=== PATIENT | male | born 1940 | race Hispanic/Latino ===

== ENCOUNTER 2016-07-15 09:09 | Inpatient (IN) | payer MEDICARE ==
--- NOTE | 2016-07-15 11:37 | XRay Report ---
LEFT HIP, 2 VIEWS History: Left hip pain after fall. Findings: There is borderline bone mineralization. Mild osteoarthritic changes are noted at the left hip. No fracture or malalignment is detected. Chronic surgical changes in the proximal right femur, correlate with history. Impression: No acute injury is identified. Mild degenerative changes.
--- NOTE | 2016-07-15 13:38 | Emergency Department Report ---
Chief Complaint: Fall Stated Complaint: FELL / LEG PAIN Time Seen by Provider: 07/15/16 13:31 - HPI History of Present Illness: 76-year-old male comes in with his for recent falls and complaining of hip pain. Patient is not able to answer questions is Dorena on his behalf. She reports that he has not been eaten for several days he's been having increased falls he's not been able to be aware of his surroundings. - Exam Vital Signs: Vital Signs 07/15/16 09:24 Temperature 98.1 F Pulse Rate 69 Respiratory 18 Rate Blood Pressure 149/108 O2 Sat by Pulse 97 Oximetry Physical Exam: GENERAL: Alert and oriented x3, no apparent distress, Normal Gait, atraumatic. HEAD: Head is normocephalic and a-traumatic. Eye: PEERA, EOMI MOUTH:Mouth is well hydrated and without lesions. Tonsils nonerythematous or swollen, Uvula midline, Tongue not elevated. Mucous membranes are moist. Posterior pharynx clear, no exudate or lesions. Patent airways. LUNGS: Symetrical with respiration, No wheezing, no rales or crackles, CTAB. HEART: S1, S2 present, regular rate and rhythm without murmur, no rubs, no gallops. EXTREMITIES/MUSCULOSKELETAL: No cyanosis, clubbing, rash, lesions or edema. Full ROM bilaterally. UE/LE Pulses 2+ bilaterally. LE and UE 5+ strength bilaterally NEUROLOGIC: No focal Deficit, Cranial nerves II through XII are grossly intact. No loss of sensation, No facial droop, Negative rhomberg. PSYCHIATRIC: Mood is congruent with affect, denies suicidal or homicidal ideations. SKIN: Warm and dry, No lesions, No ulceration or induration present MSE screening note: Focused history and physical exam performed. Due to findings the following was ordered: UA and hip x-ray ordered ED Disposition for MSE Condition: Stable Referrals: IAN PAZ MD, PHD [Primary Care Provider] - 3-5 Days
--- NOTE | 2016-07-15 14:48 | Cat Scan Report ---
CT HEAD WITHOUT CONTRAST: HISTORY: Head injury. TECHNIQUE: Sequential CT images without contrast. FINDINGS: Images obtained show bilateral prominence of the sulci and ventricles. There are no abnormal intra- or extra-axial blood or fluid collections. There are no focal masses or evidence of mass effect. The [place] white matter differentiation appears within normal limits. Regions of periventricular decreased attenuation are consistent with microangiopathic ischemic disease. Chronic-appearing focal infarcts in the left basal ganglia and inferior left cerebellar hemisphere are noted. The posterior fossa structures including the fourth ventricle, cerebellum, and brainstem appear normal. IMPRESSION: Evidence of atrophy and microangiopathic ischemic disease. 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 No acute intracranial process noted.
[2016-07-15] MEDS ORDERED: TYLENOL PO ONE (17:33)
[2016-07-15] MEDS ORDERED: NACL 0.9% 1000 ML 2,000 ML IV ONE (17:59)
[2016-07-15] MEDS ORDERED: VALIUM IV ONE (18:01)
--- NOTE | 2016-07-15 18:01 | Emergency Department Report ---
HPI - General Chief Complaint: Fall Time Seen by Provider: 07/15/16 13:31 - HPI HPI: The patient is a 76-year-old male presents for evaluation of altered mental status. The patient, by his . She states that the patient has exhibited worsening of mental status from baseline since last night, nearly 24 hours prior to my evaluation. She states that his worsening mental status has been constant since onset and severe. She also states that he has exhibited gait instability and falling more than 5 times last night which is very atypical for him. He is also complaining of left hip pain. ED Past Medical Hx - Past Medical History Hx Hypertension: Yes Hx Heart Attack/AMI: Yes Hx Dementia: Yes - Surgical History Hx Coronary Stent: Yes Hx Open Heart Surgery: Yes Additional Surgical History: multiple ortho. 7 back surgeries. hernia repair - Social History Smoking Status: Never Smoker Substance Use Type: None - Medications Home Medications: Home Medications Medication Instructions Recorded Confirmed Last Taken Type Bisoprolol/Hctz [Ziac 2.5-6.25] 1 tab PO QDAY 07/15/16 07/15/16 Unknown History Terazosin(Nf) [Hytrin (Nf)] 1 mg PO QHS 07/15/16 07/15/16 Unknown History Venlafaxine Xr [Effexor XR] 2 cap PO QDAY 07/15/16 07/15/16 Unknown History ED Review of Systems ROS: Stated complaint: FELL / LEG PAIN Other details as noted in HPI Comment: Unobtainable due to pts medical conditions (altered mental status) Physical Exam - Physical Exam Vital Signs: Vital Signs 07/15/16 09:24 Temperature 98.1 F Pulse Rate 69 Respiratory 18 Rate Blood Pressure 149/108 O2 Sat by Pulse 97 Oximetry Physical Exam: General: well-nourished, well-developed, no acute distress Head: Normocephalic, atraumatic Eyes: normal sclera, PERRL ENT: Mucous membranes are pale and dry Neck: No neck stiffness, no cervical adenopathy Respiratory: Diminished breath sounds and crackles present to bibasally lung chowdhury bilaterally Cardio: S1 and S2 present, no murmurs, rubs, gallops, capillary refill is delayed Abdomen: Normoactive bowel sounds, soft abdomen, diffuse generalized tenderness to palpation present, no rigidity, no guarding or rebound tenderness Musc: Left hip tenderness to palpation present, No pitting edema Skin: No rash Neuro: Patient unable to follow commands, gag reflex intact, protecting airway, no facial drooping, slurred speech present, spontaneously moves all extremities , reflexes 2+ symmetric on DTR testing, no lateralizing weakness Psych: Normal affect ED Course Vital Signs 07/15/16 09:24 Temperature 98.1 F Pulse Rate 69 Respiratory 18 Rate Blood Pressure 149/108 O2 Sat by Pulse 97 Oximetry ED Medical Decision Making - Lab Data Result diagrams: 07/15/16 17:56 07/15/16 17:56 - Medical Decision Making The patient was seen and examined by myself. The patient is placed on a lunchroom monitor and continuous pulse ox. On initial evaluation, the patient was found to be in no distress. Evaluation orders were placed. The patient is given normal saline fluid bolus for treatment of dehydration. X-ray of the chest reveals cardiomegaly and pulmonary vascular congestion. Lab results reveal leukocytosis, WBC of 14, and significantly elevated BNP of 35,000. CT scan the head is negative for acute intracranial disease process but does exhibit likely chronic microvascular ischemic change. X-ray of the hip is negative for acute fracture. The on-call hospitalist service was contacted. They agreed to admit the patient for further treatment and close monitoring. The ED admit order was placed. The patient was admitted in guarded condition. Critical care attestation.: If time is entered above; I have spent that time in minutes in the direct care of this critically ill patient, excluding procedure time. ED Disposition Clinical Impression: Abdominal pain, acute, generalized, Acute pain of left hip, Acute systolic CHF (congestive heart failure) Altered mental status Qualifiers: Altered mental status type: delirium Qualified Code(s): R41.0 - Disorientation , unspecified Disposition: OP ADMITTED IP TO THIS HOSP Is pt being admited?: Yes Does the pt Need Aspirin: Yes Condition: Fair Time of Disposition: 18:00
--- NOTE | 2016-07-15 18:06 | Admit Criteria Form ---
Admission Criteria Documentation: MENTAL STATUS CHANGE Clinical Indications for Inpatient Care (Place 'X' for any and all applicable criteria): Ongoing inpatient care may be needed for 1 or more of the following(1)(2)(3)(5)( 6): [X ]I. Suspected serious etiology (eg, medical disorder, [employer] event) of altered mental status [ ]II. Danger to self or others not manageable at lower level of care [ ]III. Grave disability (eg, inability to perform self care necessary at lower level of care) [ ]IV. Agitation or inappropriate behavior interfering with care for primary condition (eg, attempting to discontinue lines or drains prematurely, unable to cooperate with respiratory care) [ ]V. Delirium [A] [D][E] as described by 1 or more of the following(26): [ ]a) Delirium due to alcohol or sedative [F] withdrawal [ ]b) Delirium of uncertain etiology that has not responded to appropriate empiric treatment [ ]c) Delirium that prevents performance of a life-sustaining function (eg, feeding or hydrating oneself) [X ]. General contraindications and/or Inappropriate clinical situations for Observational Care in patients with Mental Status Change, when ANY ONE of the following is required: [X ]a) Prediction of prolongation of LOS based on ANY ONE of the following may be considered as a contraindication for observational care 2, 3, 4, 5, 6, 7, 8, 9, 10, 11 [X ]i) Age > 65 yrs. [ ]ii) Patient arriving by ambulance [ ]iii) Patient with high acuity [ ]iv) Patient requiring vital sign monitoring [ ]v) Patient on IV medication [ ]b) Systolic blood pressures greater than or equal to 180mmHg 3, 12 [ ]c) Patient with altered mental status including delirium and other alteration of consciousness, (3) [ ]d) Patient whose discharge disposition will be to a long-term home or rehabilitation home should not be managed in Emergency Department Observation Unit. CMS rule requires 3 days hospital stay before such placement.3,13 [ ]e) Patient with failure to thrive due to broad array of etiologies 3,16,17 [ ]f) Inability to ambulate 3,14 Extended stay beyond goal length of stay for the primary condition may be needed until ALL of the following are present(3)(5): [ ]a) Underlying medical etiology of mental status change is absent, or has been established and adequately treated [ ]b) Danger to self or others is absent or manageable at lower level of care. [ ]c) Behavior crisis management, including physical or chemical restraints, is not required or available at lower level of car [ ]d) Substance or alcohol withdrawal is absent or manageable at lower level of care. [ ]e) Behavioral symptoms (eg, agitation, somnolence, inappropriate behavior) are absent, or are manageable at lower level of care. The original [facility] [employer] content created by [facility] has been revised. The portions of the content which have been revised are identified through the use of italic text or in bold, and [facility] has neither reviewed nor approved the modified material. All other unmodified content is copyright [facility]. Please see references footnoted in the original [facility] edition 2016 Admission Criteria Met: Yes
[2016-07-15 18:15] LABS: Basophils % (Auto) 0.2 % (0.0-1.8); Hematocrit 40.4 % (35.5-45.6); Hemoglobin 13.4 gm/dl (11.8-15.2); Mean Corpuscular HGB Conc 33 % (32-34); Mean Corpuscular Hemoglobin 30 pg (28-32); Mean Corpuscular Volume 91 fl (84-94); Platelet Count 206 K/mm3 (140-440); Red Blood Count 4.43 M/mm3 (3.65-5.03); Red Cell Distribution Width 14.6 % (13.2-15.2); White Blood Count 14.4 K/mm3 (4.5-11.0)
[2016-07-15 18:31] LABS: Alanine Aminotransferase 16 units/L (7-56); Albumin 4.4 g/dL (3.9-5); Albumin/Globulin Ratio 1.5 %; Alkaline Phosphatase 83 units/L (35-129); Anion Gap 22 mmol/L; BUN/Creatinine Ratio 16.66; Blood Urea Nitrogen 15 mg/dL (9-20); Calcium 10.1 mg/dL (8.4-10.2); Carbon Dioxide 22 mmol/L (22-30); Chloride 97.1 mmol/L (98-107); Creatine Kinase 408 units/L (55-170); Glucose 116 mg/dL (75-100); Potassium 3.4 mmol/L (3.6-5.0); Sodium 138 mmol/L (137-145); Total Protein 7.3 g/dL (6.3-8.2)
[2016-07-15 18:33] LABS: INR 1.3 (0.87-1.13); Partial Thromboplastin Time 29.9 Sec. (24.2-36.6)
[2016-07-15] MEDS ORDERED: APRESOLINE IV ONE (18:57)
--- NOTE | 2016-07-15 19:38 | History and Physical Report ---
History of Present Illness Chief complaint: Falling, History of present illness: 76 YO Male with HTN, [place], Dementia, CAD S/P CABG presents to ED for evaluation. Pt unable to provide history. Pt at bedside and provides history. As per , pt has gotten progressively weaker over the past 4 days, and is currently unable to walk. Pt was ambulating independently 4 days ago, and able to conduct ADL's. Pt denies reports of fever, chills, CP, Palpitation, NVD, syncope, vertigo, headache, or recent ill contacts. Pt see and evaluated in ED, Pt is able to protect his airway but is aspirating. Past History Past Medical History: acute SC, CAD, hypertension Past Surgical History: CABG, hernia repair, Other (back surgery) Social history: , lives with family. denies: smoking, alcohol abuse, prescription drug abuse Family history: hypertension Medications and Allergies Allergies Allergy/AdvReac Type Severity Reaction Status Date / Time No Known Allergies Allergy Verified 07/15/16 09:33 Home Medications Medication Instructions Recorded Confirmed Last Taken Type Bisoprolol/Hctz [Ziac 2.5-6.25] 1 tab PO QDAY 07/15/16 07/15/16 Unknown History Terazosin(Nf) [Hytrin (Nf)] 1 mg PO QHS 07/15/16 07/15/16 Unknown History Venlafaxine Xr [Effexor XR] 2 cap PO QDAY 07/15/16 07/15/16 Unknown History Active Meds: Active Medications Sodium Chloride (Nacl 0.9% 1000 Ml) 2,000 mls @ 999 mls/hr IV BOLUS ONE Stop: 07/15/16 19:59 Review of Systems ROS unobtainable: due to mental status Exam - Constitutional Vitals: Temp Pulse Resp BP Pulse Ox 98.1 F 69 18 149/108 97 07/15/16 09:24 07/15/16 09:24 07/15/16 09:24 07/15/16 09:24 07/15/16 09:24 General appearance: Present: mild distress, cachectic - EENT Eyes: Present: PERRL ENT: hearing intact, clear oral mucosa - Neck Neck: Present: supple, normal ROM - Respiratory Respiratory effort: labored Respiratory: bilateral: diminished - Cardiovascular Rhythm: regular Heart Sounds: Present: S1 & S2 - Extremities Extremities: no ischemia Peripheral Pulses: within normal limits - Abdominal General gastrointestinal: Present: soft, non-tender, non-distended Male genitourinary: Present: normal - Integumentary Integumentary: Present: clear, dry, decreased turgor - Musculoskeletal Musculoskeletal: generalized weakness - Psychiatric Psychiatric: no intact judgment & insight, no memory intact - Neurologic Neurologic: CNII-XII intact, no focal deficits, moves all extremities, no gait normal Results - Labs CBC & Chem 7: 07/15/16 17:56 07/15/16 17:56 Labs: Abnormal lab results 07/15/16 07/15/16 07/15/16 Range/Units 17:56 17:56 17:56 WBC 14.4 H (4.5-11.0) K/mm3 Lymph % (Auto) 4.3 L (13.4-35.0) % [place] % (Auto) 8.8 H (0.0-7.3) % Lymph # 0.6 L (1.2-5.4) K/mm3 [place] # 1.3 H (0.0-0.8) K/mm3 Seg Neutrophils % 86.7 H (40.0-70.0) % Seg Neutrophils # 12.4 H (1.8-7.7) K/mm3 PT 16.1 H (12.2-14.9) Sec. INR 1.30 H (0.87-1.13) Potassium 3.4 L (3.6-5.0) mmol/L Chloride 97.1 L (98-107) mmol/L Glucose 116 H (75-100) mg/dL Total Bilirubin 1.80 H (0.1-1.2) mg/dL Total Creatine Kinase 408 H (55-170) units/L NT-Pro-B Natriuret Pep (0-900) pg/mL 07/15/16 Range/Units 17:56 WBC (4.5-11.0) K/mm3 Lymph % (Auto) (13.4-35.0) % [place] % (Auto) (0.0-7.3) % Lymph # (1.2-5.4) K/mm3 [place] # (0.0-0.8) K/mm3 Seg Neutrophils % (40.0-70.0) % Seg Neutrophils # (1.8-7.7) K/mm3 PT (12.2-14.9) Sec. INR (0.87-1.13) Potassium (3.6-5.0) mmol/L Chloride (98-107) mmol/L Glucose (75-100) mg/dL Total Bilirubin (0.1-1.2) mg/dL Total Creatine Kinase (55-170) units/L NT-Pro-B Natriuret Pep 61336 H (0-900) pg/mL Assessment and Plan - Patient Problems (1) Aspiration pneumonia Current Visit: Yes Status: Acute Qualifiers: Aspiration pneumonia type: A Laterality: L Lung location: L Plan to address problem: Pneumonia Protocol: IV abx, blood cultures, aspiration precautions, supplemental oxygen, nebs, pulmonary toilet, (2) CHF (congestive heart failure) Current Visit: Yes Status: Acute Qualifiers: Congestive heart failure type: C Congestive heart failure chronicity: C Plan to address problem: Echo, diuresis, monitor uop q shift, serial cardiac enzymes, ekg, telemetry, supportive care, afterload reduction as clinically indicated, (3) Accelerated hypertension Current Visit: Yes Status: Acute Plan to address problem: Monitor BP q shift, continue current therapy (4) CAD (coronary artery disease) Current Visit: Yes Status: Acute Qualifiers: Coronary Disease-Associated Artery/Lesion type: C [place] vs. transplanted heart: N Associated angina: without angina Plan to address problem: No angina at this time, supportive care, telemetry (5) DVT prophylaxis Current Visit: Yes Status: Acute
[2016-07-15] MEDS ORDERED: TYLENOL PO PRN (20:11)
[2016-07-15] MEDS ORDERED: ZOFRAN IV PRN (20:11)
[2016-07-15] MEDS ORDERED: DUONEB 0.5 MG-3 MG/3 ML SOLN IH PRN (20:11)
[2016-07-15] MEDS ORDERED: PROVENTIL IH PRN (20:20)
[2016-07-15] MEDS ORDERED: TERAZOSIN 1 MG PO SCH (22:00)
[2016-07-15] MEDS ORDERED: ROCEPHIN/NS 1 GM/50 ML 1 GM/50 ML BAG IV ONE (22:43)
[2016-07-15] MEDS: MINIPRESS PO SCH (22:50)
[2016-07-15] MEDS: ROCEPHIN/NS 1 GM/50 ML 1 GM/50 ML BAG IV SCH (22:51)
[2016-07-16] MEDS: ZITHROMAX 500 MG in NACL 0.9% 250ML 250 ML IV SCH ×2 (03:15→23:02)
[2016-07-16 06:00] LABS: Basophils % (Auto) 0.1 % (0.0-1.8); Hematocrit 36.7 % (35.5-45.6); Hemoglobin 12.3 gm/dl (11.8-15.2); Mean Corpuscular HGB Conc 33 % (32-34); Mean Corpuscular Hemoglobin 30 pg (28-32); Mean Corpuscular Volume 89 fl (84-94); Platelet Count 165 K/mm3 (140-440); Red Blood Count 4.11 M/mm3 (3.65-5.03); Red Cell Distribution Width 14.6 % (13.2-15.2); White Blood Count 11.8 K/mm3 (4.5-11.0)
[2016-07-16 06:14] LABS: Anion Gap 22 mmol/L; BUN/Creatinine Ratio 16.25; Blood Urea Nitrogen 13 mg/dL (9-20); Carbon Dioxide 19 mmol/L (22-30); Chloride 99.7 mmol/L (98-107); Glucose 100 mg/dL (75-100); Sodium 138 mmol/L (137-145)
[2016-07-16 06:19] LABS: Potassium 2.8 mmol/L (3.6-5.0)
[2016-07-16] MEDS: LASIX IV SCH ×2 (06:28→18:20)
--- NOTE | 2016-07-16 07:27 | XRay Report ---
AP CHEST: HISTORY: chest pain No comparison at this facility. Previous cardiac surgery changes are noted. There is mild cardiomegaly and borderline pulmonary venous congestion. The lungs are clear. No evidence for pneumonia, CHF or pneumothorax. Chronic deformity of the right clavicle is suspected. No acute bony abnormality. IMPRESSION: Mild cardiomegaly and borderline pulmonary venous congestion. No CHF.
[2016-07-16] MEDS ORDERED: PROVENTIL IH PRN (10:26)
[2016-07-16] MEDS ORDERED: ZOFRAN IV PRN (10:44)
[2016-07-16] MEDS ORDERED: SODIUM CHLORIDE FLUSH SYRINGE 10 ML IV PRN (10:44)
[2016-07-16] MEDS ORDERED: REGLAN PO PRN (10:44)
[2016-07-16] MEDS ORDERED: DULCOLAX PR PRN (10:44)
[2016-07-16] MEDS ORDERED: PHENERGAN PR PRN (10:44)
[2016-07-16] MEDS ORDERED: TYLENOL PO PRN (10:44)
[2016-07-16] MEDS ORDERED: MILK OF MAGNESIA PO PRN (10:44)
--- NOTE | 2016-07-16 10:52 | Progress Note ---
Assessment and Plan Assessment and plan: Acute CVA. I suspect patient may have acute CVA given the frequent falls/ ataxia and dysarthria reported by the . Patient may also have component of aphasia. CT scan of the head revealed microangiopathic ischemic disease and chronic focal infarcts in the left basal ganglia and left cerebellum. We will check MRI/MRA to rule out new acute infarct. Patient is outside of the TPA window given the onset of symptoms started Thursday. We will also check echocardiogram. Aspiration pneumonia. Continue IV antibiotics, aspiration precautions, supplemental oxygen, nebulizer treatments and pulmonary toileting. Speech therapy evaluation. Keep nothing by mouth for now Accelerated hypertension. Start IV antihypertensive medications given NPO status. Coronary artery disease. Continue telemetry monitoring and supportive care. Hypokalemia. Replete potassium. Check magnesium Encephalopathy. Etiology likely secondary to #1. Other possible etiology may be toxic related to pneumonia. DVT prophylaxis. Start Lovenox daily. History Interval history: 76 YO Male with HTN, [place], Dementia, CAD S/P CABG presents to ED for evaluation. Pt unable to provide history. Pt at bedside and provides history. As per , pt has gotten progressively weaker over the past 4 days, and is currently unable to walk. Pt was ambulating independently 4 days ago, and able to conduct ADL's. Pt denies reports of fever, chills, CP, Palpitation, NVD, syncope, vertigo, headache, or recent ill contacts. Dr. López saw and evaluated in ED. he felt that the patient was able to protect his airway but was aspirating. Therefore, patient was admitted with diagnosis of aspiration pneumonia. I discussed the history with the who reports patient having frequent falls starting on Thursday. Patient reportedly had 4 falls associated with slurred speech. Patient is agitated and confused. is at the bedside. Hospitalist Physical - Constitutional Vitals: Temp Pulse Resp BP Pulse Ox 98.9 F 98 H 19 134/70 96 07/16/16 07:00 07/16/16 07:00 07/16/16 07:00 07/16/16 07:00 07/16/16 07:17 General appearance: Present: no acute distress, cachectic - EENT Eyes: Present: PERRL, EOM intact ENT: hearing intact, clear oral mucosa, dentition normal - Neck Neck: Present: supple, normal ROM - Respiratory Respiratory effort: normal Respiratory: bilateral: rhonchi - Cardiovascular Rhythm: regular Heart Sounds: Present: S1 & S2. Absent: gallop, rub - Extremities Extremities: no ischemia, No edema, Full ROM - Abdominal General gastrointestinal: soft, non-tender, non-distended, normal bowel sounds - Integumentary Integumentary: Present: clear, warm, dry - Neurologic Neurologic: CNII-XII intact, moves all extremities Results - Labs CBC & Chem 7: 07/16/16 05:01 07/16/16 05:01 Labs: Laboratory Last Values WBC 11.8 K/mm3 (4.5-11.0) H 07/16/16 05:01 RBC 4.11 M/mm3 (3.65-5.03) 07/16/16 05:01 Hgb 12.3 gm/dl (11.8-15.2) 07/16/16 05:01 Hct 36.7 % (35.5-45.6) 07/16/16 05:01 MCV 89 fl (84-94) 07/16/16 05:01 MCH 30 pg (28-32) 07/16/16 05:01 MCHC 33 % (32-34) 07/16/16 05:01 RDW 14.6 % (13.2-15.2) 07/16/16 05:01 Plt Count 165 K/mm3 (140-440) 07/16/16 05:01 Lymph % (Auto) 6.9 % (13.4-35.0) L 07/16/16 05:01 [place] % (Auto) 9.8 % (0.0-7.3) H 07/16/16 05:01 Eos % (Auto) 0.0 % (0.0-4.3) 07/16/16 05:01 Baso % (Auto) 0.1 % (0.0-1.8) 07/16/16 05:01 Lymph # 0.8 K/mm3 (1.2-5.4) L 07/16/16 05:01 [place] # 1.2 K/mm3 (0.0-0.8) H 07/16/16 05:01 Eos # 0.0 K/mm3 (0.0-0.4) 07/16/16 05:01 Baso # 0.0 K/mm3 (0.0-0.1) 07/16/16 05:01 Seg Neutrophils % 83.2 % (40.0-70.0) H 07/16/16 05:01 Seg Neutrophils # 9.8 K/mm3 (1.8-7.7) H 07/16/16 05:01 PT 16.1 Sec. (12.2-14.9) H 07/15/16 17:56 INR 1.30 (0.87-1.13) H 07/15/16 17:56 APTT 29.9 Sec. (24.2-36.6) 07/15/16 17:56 D-Dimer 5169.78 ng/mlDDU (0-234) H 07/15/16 17:56 Sodium 138 mmol/L (137-145) 07/16/16 05:01 Potassium 2.8 mmol/L (3.6-5.0) L* 07/16/16 05:01 Chloride 99.7 mmol/L (98-107) 07/16/16 05:01 Carbon Dioxide 19 mmol/L (22-30) L 07/16/16 05:01 Anion Gap 22 mmol/L 07/16/16 05:01 BUN 13 mg/dL (9-20) 07/16/16 05:01 Creatinine 0.8 mg/dL (0.8-1.5) 07/16/16 05:01 Estimated GFR > 60 ml/min 07/16/16 05:01 BUN/Creatinine Ratio 16.25 % 07/16/16 05:01 Glucose 100 mg/dL (75-100) 07/16/16 05:01 Calcium 9.0 mg/dL (8.4-10.2) 07/16/16 05:01 Total Bilirubin 1.80 mg/dL (0.1-1.2) H 07/15/16 17:56 AST 38 units/L (5-40) 07/15/16 17:56 ALT 16 units/L (7-56) 07/15/16 17:56 Alkaline Phosphatase 83 units/L (35-129) 07/15/16 17:56 Total Creatine Kinase 408 units/L (55-170) H 07/15/16 17:56 NT-Pro-B Natriuret Pep 17643 pg/mL (0-900) H 07/15/16 17:56 Total Protein 7.3 g/dL (6.3-8.2) 07/15/16 17:56 Albumin 4.4 g/dL (3.9-5) 07/15/16 17:56 Albumin/Globulin Ratio 1.5 % 07/15/16 17:56
[2016-07-16] MEDS: EFFEXOR XR PO SCH (11:16)
--- NOTE | 2016-07-16 11:56 | Consultation ---
History of Present Illness Consult date: 07/16/16 Requesting physician: LU JONES Reason for Consult: ataxia/dysarthria Chief complaint: AMS limits direct hx History of present illness: 76 YO M Hx HTN, SD, Dementia but communicative and ambulated @ home w/o assistance, CAD S/P CABG presents to ED for evaluation. Pt unable to provide history. Pt at bedside and provides history. As per , pt has gotten progressively weaker over the past 4 days, and is currently unable to walk causing falls. Pt was ambulating independently 4 days ago, and able to conduct ADL's. Sx are constant but waxing and waning. There are no clear aggravating, relieving or temporal factors. Severity is such to limit ADLs. She also noted slurred speech. Past History Past Medical History: acute SD, CAD, hypertension Past Surgical History: CABG, hernia repair, Other (back surgery) Social history: , lives with family. denies: smoking, alcohol abuse, prescription drug abuse Family history: hypertension Medications and Allergies Allergies Allergy/AdvReac Type Severity Reaction Status Date / Time No Known Allergies Allergy Verified 07/15/16 09:33 Home Medications Medication Instructions Recorded Confirmed Last Taken Type Bisoprolol/Hctz [Ziac 2.5-6.25] 1 tab PO QDAY 07/15/16 07/15/16 Unknown History Terazosin(Nf) [Hytrin (Nf)] 1 mg PO QHS 07/15/16 07/15/16 Unknown History Venlafaxine Xr [Effexor XR] 2 cap PO QDAY 07/15/16 07/15/16 Unknown History Active Meds: Active Medications Acetaminophen (Tylenol) 650 mg PO Q4H PRN PRN Reason: Pain MILD(1-3)/Fever >100.5/CABRERA Albuterol (Proventil) 2.5 mg IH Q6HRT PRN PRN Reason: Wheezing Albuterol/Ipratropium (Duoneb 0.5 Mg-3 Mg/3 Ml Soln) 1 ampul IH TIDRT TINO Bisacodyl (Dulcolax) 10 mg OK QDAY PRN PRN Reason: Constipation Enoxaparin Sodium (Lovenox) 40 mg SUB-Q QDAY TINO Furosemide (Lasix) 20 mg IV BID@0600,1800 TINO Last Admin: 07/16/16 06:28 Dose: 20 mg Azithromycin 500 mg/ Sodium (Chloride) 250 mls @ 250 mls/hr IV Q24H TINO PRN Reason: Protocol Last Admin: 07/16/16 03:15 Dose: 250 mls/hr Ceftriaxone Sodium (Rocephin/Ns 1 Gm/50 Ml) 1 gm in 50 mls @ 100 mls/hr IV Q24H TINO PRN Reason: Protocol Last Admin: 07/15/16 22:51 Dose: 100 mls/hr Potassium Chloride (Kcl 10meq/100ml) 10 meq in 100 mls @ 100 mls/hr IV ONCE ONE Stop: 07/16/16 12:59 Potassium Chloride (Kcl 10meq/100ml) 10 meq in 100 mls @ 100 mls/hr IV ONCE ONE Stop: 07/16/16 14:59 Influenza Virus Vaccine Quadrival (Fluarix Quad [id number] [id number])) 60 mcg IM .ONCE ONE Stop: 07/16/16 12:01 Magnesium Hydroxide (Milk Of Magnesia) 30 ml PO Q4H PRN PRN Reason: Constipation Metoclopramide HCl (Reglan) 10 mg PO Q6H PRN PRN Reason: Nausea And Vomiting Ondansetron HCl (Zofran) 4 mg IV Q8H PRN PRN Reason: N/V unrelieved by Reglan Pneumococcal Polyvalent Vaccine (Pneumovax 23) 0.5 ml IM .ONCE ONE Stop: 07/16/16 12:01 Prazosin HCl (Minipress) 1 mg PO QHS [facility]1983 Last Admin: 07/15/16 22:50 Dose: 1 mg Promethazine HCl (Phenergan) 25 mg OK Q6H PRN PRN Reason: Nausea And Vomiting Simvastatin (Zocor) 20 mg PO QHS [facility], [facility]1983 Sodium Chloride (Sodium Chloride Flush Syringe 10 Ml) 10 ml IV PRN PRN PRN Reason: LINE FLUSH Venlafaxine HCl (Effexor Xr) 150 mg PO QDAY [facility]1983 Last Admin: 07/16/16 11:16 Dose: Not Given Review of Systems ROS unobtainable: due to mental status Physical Examination - Vital Signs Vital Signs: Vital Signs Temp Pulse Resp BP Pulse Ox 98.1 F 69 18 149/108 97 07/15/16 09:24 07/15/16 09:24 07/15/16 09:24 07/15/16 09:24 07/15/16 09:24 - Constitutional General appearance: uncomfortable, acutely ill, chronically ill - EENT EENT: Present: ATNC, PERRL, mucous membranes moist, hearing intact, vision intact - Respiratory Respiratory: Present: chest non-tender, normal breath sounds, no respiratory distress - Cardiovascular Cardiovascular: Present: regular rate Extremities: Present: no peripheral edema bilatateraly, no clubbing, cyanosis, no inflammation, no ischemia or petechiae - Gastrointestinal Gastrointestinal: Present: normoactive bowel sounds, soft, non-distended - Integumentary Integumentary: Present: normal - Neurologic Cranial nerve examination: PERRL, EOMI, face symmetric, intact, Intact Vestibulo -ocular r, intact corneal reflex Speech examination: other (paucity of speech) Sensorimotor examination: intact, other (asterixis) Detailed motor examination: grossly full strength in Motor examination - right side: 4/5: biceps, triceps, wrist flexion, wrist extension, pulp drier, hip flexors, knee extensors, dorsiflexion, toe extension (EHL) , plantarflexion Motor examination - left side: 4/5: biceps, triceps, wrist flexion, wrist extension, pulp drier, hip flexors, knee extensors, dorsiflexion, toe extension (EHL) , plantarflexion Detailed sensory examination: intact, pain Reflexes: 1+: ankle, 2+: bicep, knee, tricep - Musculoskeletal Musculoskeletal: Present: no fluid collection, no pain, normal range of motion - Psychiatric Psychiatric: Present: agitated Results - Laboratory Findings CBC and BMP: 07/16/16 05:01 07/16/16 05:01 Abnormal Lab Findings: Abnormal Labs 07/16/16 07/16/16 05:01 05:01 WBC 11.8 H Lymph % (Auto) 6.9 L [place] % (Auto) 9.8 H Lymph # 0.8 L [place] # 1.2 H Seg Neutrophils % 83.2 H Seg Neutrophils # 9.8 H Potassium 2.8 L* Carbon Dioxide 19 L Assessment and Plan 76 YO M Hx HTN, CAd s/p CABG and Dementia but @ baseline communicative, able to perform ADLs and ambulate @ home w/o assistance p/w AMS and progressive global weakness over the past 4 days causing falls. On exam pt w/ depressed level of arousal, poor concentration, paucity of speech, not cooperative w/ midline/ peripheral commands but grossly intact motor-sensory exam aside from asterixis/ myoclonus localizing pain but otherwise intact symmetric neurologic exam, consistent with likely toxic metabolic infectious derangement as the etiology for neurologic decompensation. There is no clear new focality on neurologic examination to suggest acute BUSINESS MANAGEMENT ASSOCIATE process e.g. Stroke, Seizure or Meningitis. CTH nonacute L BG and cerebellar chronic ischemia and global atrophy Recommendations: 1. MRI Brain w/o Jake to r/o acute BUSINESS MANAGEMENT ASSOCIATE lesion. 2. Check serum TSH/Vit B12/Ammonia and correct as necessary 3. Cont Infectious work up/medical management for UTI, PNA, cellulitis, bacteremia, etc. 4. Avoid hyponatremia, hypo/hyper-calcemia, hypo/hyperglycemia, acidosis, hypoxia/hypoxemia, hypercarbia/hypercapnia 5. Avoid institution of any psychoactive medications (e.g. antihistamines, anticholinergics, BZD, hypnotics, opiates) as able unless low doses of low potency antipsychotic needed for behavioral issues complicating medical care 6. Thiamine/Folate/CIWA protocol accordingly for any hx obtained to suggest EtOH withdrawal 7. Cont home meds-there is no neurologic indication to change
[2016-07-16] MEDS ORDERED: PNEUMOVAX 23 IM ONE (12:00)
[2016-07-16] MEDS ORDERED: FLUARIX QUAD 2016-2017(36 MOS+) IM ONE (12:00)
[2016-07-16] MEDS ORDERED: KCL 10MEQ/100ML 10 MEQ/100 ML BAG IV ONE ×2 (12:00→14:00)
[2016-07-16] MEDS: DUONEB 0.5 MG-3 MG/3 ML SOLN IH SCH ×2 (13:35→19:48)
[2016-07-16] MEDS ORDERED: ATIVAN IV ONE (17:13)
[2016-07-16] MEDS: LOVENOX SUB-Q SCH (18:20)
[2016-07-16] MEDS: MINIPRESS PO SCH (20:41)
[2016-07-16] MEDS: ZOCOR PO SCH (22:42)
[2016-07-16] MEDS: ROCEPHIN/NS 1 GM/50 ML 1 GM/50 ML BAG IV SCH (23:02)
[2016-07-17] MEDS: LASIX IV SCH ×2 (05:26→18:36)
[2016-07-17] MEDS: DUONEB 0.5 MG-3 MG/3 ML SOLN IH SCH ×3 (07:50→19:40)
[2016-07-17] MEDS ORDERED: ATIVAN IV ONE (09:09)
[2016-07-17] MEDS: LOVENOX SUB-Q SCH (09:25)
[2016-07-17] MEDS: EFFEXOR XR PO SCH (09:34)
--- NOTE | 2016-07-17 10:09 | Progress Note ---
Assessment and Plan 76 YO M Hx HTN, CAd s/p CABG and Dementia but @ baseline communicative, able to perform ADLs and ambulate @ home w/o assistance p/w AMS and progressive global weakness over the past 4 days causing falls. On exam pt w/ depressed level of arousal, poor concentration, paucity of speech, not cooperative w/ midline/ peripheral commands but grossly intact motor-sensory exam aside from asterixis/ myoclonus localizing pain but otherwise intact symmetric neurologic exam, consistent with likely toxic metabolic infectious derangement as the etiology for neurologic decompensation. There is no clear new focality on neurologic examination to suggest acute SHEET TURNER process e.g. Stroke, Seizure or Meningitis. CTH nonacute L BG and cerebellar chronic ischemia and global atrophy. TSH/B12/ NH4 neg. Recommendations: 1. MRI Brain w/o Jake to r/o acute SHEET TURNER lesion. 2. Cont Infectious work up/medical management for UTI, PNA, cellulitis, bacteremia, etc. 3. Avoid hyponatremia, hypo/hyper-calcemia, hypo/hyperglycemia, acidosis, hypoxia/hypoxemia, hypercarbia/hypercapnia 4. Avoid institution of any psychoactive medications (e.g. antihistamines, anticholinergics, BZD, hypnotics, opiates) as able unless low doses of low potency antipsychotic needed for behavioral issues complicating medical care 5. Thiamine/Folate/CIWA protocol accordingly for any hx obtained to suggest EtOH withdrawal 6. Cont home meds-there is no neurologic indication to change Subjective Date of service: 07/17/16 Principal diagnosis: AMS Interval history: No new events. Objective - Vital Sign Vital Signs - 12hr 07/17/16 07/17/16 07/17/16 00:00 04:00 05:25 Temperature 98.0 F 97.8 F Pulse Rate [ 116 H 110 H Right Radial] Respiratory 20 16 Rate Blood Pressure 170/82 144/98 142/72 [Right Arm] O2 Sat by Pulse 100 98 Oximetry 07/17/16 07/17/16 08:00 08:11 Temperature 98 F Pulse Rate [ 100 H Right Radial] Respiratory 16 Rate Blood Pressure 148/80 [Right Arm] O2 Sat by Pulse 98 100 Oximetry - General Apperance Constitutional: uncomfortable, acutely ill, chronically ill - EENT EENT: ATNC, PERRL, mucous membranes dry, hearing intact, vision intact - Respiratory Respiratory: chest non-tender, normal breath sounds, no respiratory distress - Cardiovascular Cardiovascular: regular rate Extremities: no peripheral edema bilat, no clubbing, cyanosis, no inflammation, no ischemia or petechiae - Gastrointestinal Gastrointestinal: normoactive bowel sounds, soft, non-distended - Integumentary Integumentary: normal - Neurologic Cranial nerve examination: PERRL, EOMI, VFF, V1/V2/V3 grossly intact, face symmetric, tongue midline, intact, intact shoulder shrug, Intact Vestibulo- ocular r, intact corneal reflex, normal palatal elevation Speech examination: intact, other (pauicty of speech) Detailed motor examination: grossly full strength in Motor examination - right side: 4/5: biceps, triceps, wrist flexion, wrist extension, swimming instructor, hip flexors, knee extensors, dorsiflexion, toe extension (EHL) , plantarflexion Motor examination - left side: 4/5: biceps, triceps, wrist flexion, wrist extension, swimming instructor, hip flexors, knee extensors, dorsiflexion, toe extension (EHL) , plantarflexion Detailed sensory examination: intact, light touch, pain Reflex and gait examination: intact Reflexes: 0: ankle, 2+: bicep, knee, tricep - Musculoskeletal Musculoskeletal: no fluid collection, no pain, normal range of motion - Psychiatric Psychiatric: agitated - Laboratory Findings CBC and BMP: 07/16/16 05:01 07/16/16 05:01 Abnormal Lab Findings: Abnormal Labs 07/16/16 07/16/16 05:01 05:01 WBC 11.8 H Lymph % (Auto) 6.9 L [place] % (Auto) 9.8 H Lymph # 0.8 L [place] # 1.2 H Seg Neutrophils % 83.2 H Seg Neutrophils # 9.8 H Potassium 2.8 L* Carbon Dioxide 19 L
--- NOTE | 2016-07-17 11:46 | Magnetic Resonance Report ---
MRI of the brain without contrast. History: Stroke. Procedure: Routine brain protocol without contrast. Motion artifact degrades image quality on multiple sequences, several of which are nondiagnostic. Findings: There are areas of restricted diffusion in the left basal ganglia, most pronounced in the globus pallidus. An additional area of restricted diffusion is seen in the lateral aspect of the left occipital lobe. There are areas of edema/hyperintense T2 signal in these regions. There is no mass effect. No additional areas of restricted diffusion are seen. There are symmetrical areas of hyperintense T2 and flair signal in the periventricular white matter. There are no extra-axial collections. Moderate global atrophy is present. The ventricles are not effaced or shifted. The pituitary gland appears normal. The visualized cranial structures are normal. Impression: Multiple Acute infarcts involving the left basal ganglia and left occipital lobe. Comment: These findings were given by telephone to the patient's nurse,Bobby at 11:40 AM on July 17, 2016.
[2016-07-17 12:19] LABS: Anion Gap 26 mmol/L; Blood Urea Nitrogen 16 mg/dL (9-20); Calcium 9.9 mg/dL (8.4-10.2); Carbon Dioxide 22 mmol/L (22-30); Chloride 100.3 mmol/L (98-107); Glucose 88 mg/dL (75-100); Potassium 3.4 mmol/L (3.6-5.0); Sodium 145 mmol/L (137-145)
[2016-07-17] MEDS ORDERED: ATIVAN IV PRN (12:47)
--- NOTE | 2016-07-17 13:11 | Magnetic Resonance Report ---
MRA of the [place]. History: Stroke. Procedure: 3-D [id number] technique. Findings: The examination is severely limited by motion artifact. There is complete occlusion of the left internal carotid artery. Flow is seen in the left anterior cerebral artery via the patent intercommunicating artery. Very limited flow is seen in the MCA territory. The right vertebral artery and basilar artery appear normal. The left vertebral is either occluded or atretic. The posterior cerebral arteries are probably normal although technical quality is an issue. 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 Severe technical limitations are noted.
--- NOTE | 2016-07-17 13:11 | Progress Note ---
Assessment and Plan Total Time Spent with Patient (Minutes): 34 - Patient Problems (1) Acute ischemic stroke Current Visit: Yes Status: Acute Plan to address problem: Agent with acute is screaming stroke left basal ganglia left occipital region. Significant hemiparesis dysphagia unable to pass swallowing eval. This is in the face of patient was already DO NOT RESUSCITATE. Family also does not want PEG tube placement at this particular time. They give evidence that patient had no quality of life even prior to this event and would not like patient to live this way. She wants comfort measures only. We'll start patient on some Ativan today. She does not want feeding tube at this time I informed her to speak with her son and make a decision by tomorrow. Hospice services are appropriate. (2) Accelerated hypertension Current Visit: Yes Status: Acute Plan to address problem: Accelerated hypertension we'll treat with hydralazine IV for now. (3) Acute systolic CHF (congestive heart failure) Current Visit: Yes Status: Acute Plan to address problem: Agent has a chronic history of systolic heart failure. Not active heart failure particular time. Patient has no JVD no lower extremity edema no crackles on exam. (4) Aspiration pneumonia Current Visit: Yes Status: Acute Qualifiers: Aspiration pneumonia type: A Laterality: L Lung location: L Plan to address problem: Patient aspiration pneumonia secondary to CVA. Continue present IV anabiotic coverage for now. (5) CAD (coronary artery disease) Current Visit: Yes Status: Acute Qualifiers: Coronary Disease-Associated Artery/Lesion type: C [place] vs. transplanted heart: N Associated angina: without angina Plan to address problem: Unable to appreciate a patient is having chest pain. He has pain all over from chronic arthritis. Will treat patient pain with morphine. History Interval history: Patient today laying in bed agitated grunting. Appears to be in at least mild distress. Spoke with at bedside Jessie and explained patient prior to admission already was essentially bed bound chronic pain and had evidence of dementia. States they would not like patient to live this way. When I approach her about PEG tube feedings I stated that she is leaning towards not starting to feeds and seeking comfort measures only. Hospitalist Physical - Constitutional Vitals: Temp Pulse Resp BP Pulse Ox 98 F 130 H 22 166/84 100 07/17/16 12:00 07/17/16 12:00 07/17/16 12:00 07/17/16 12:00 07/17/16 10:00 General appearance: Present: no acute distress, cachectic, disheveled, other ( moderate distress) - EENT ENT: clear oral mucosa, other (oral mucosa dry) - Respiratory Respiratory: bilateral: diminished, rales - Cardiovascular Rhythm: other (tachycardia agitated.) Heart Sounds: Present: S1 & S2 - Extremities Extremities: no ischemia, pulses intact Peripheral Pulses: within normal limits - Abdominal General gastrointestinal: soft, hypoactive bowel sounds (Void), other - Psychiatric Psychiatric: agitated - Neurologic Neurologic: focal deficits Results - Labs CBC & Chem 7: 07/16/16 05:01 07/17/16 06:34 Labs: Laboratory Last Values WBC 11.8 K/mm3 (4.5-11.0) H 07/16/16 05:01 RBC 4.11 M/mm3 (3.65-5.03) 07/16/16 05:01 Hgb 12.3 gm/dl (11.8-15.2) 07/16/16 05:01 Hct 36.7 % (35.5-45.6) 07/16/16 05:01 MCV 89 fl (84-94) 07/16/16 05:01 MCH 30 pg (28-32) 07/16/16 05:01 MCHC 33 % (32-34) 07/16/16 05:01 RDW 14.6 % (13.2-15.2) 07/16/16 05:01 Plt Count 165 K/mm3 (140-440) 07/16/16 05:01 Lymph % (Auto) 6.9 % (13.4-35.0) L 07/16/16 05:01 [place] % (Auto) 9.8 % (0.0-7.3) H 07/16/16 05:01 Eos % (Auto) 0.0 % (0.0-4.3) 07/16/16 05:01 Baso % (Auto) 0.1 % (0.0-1.8) 07/16/16 05:01 Lymph # 0.8 K/mm3 (1.2-5.4) L 07/16/16 05:01 [place] # 1.2 K/mm3 (0.0-0.8) H 07/16/16 05:01 Eos # 0.0 K/mm3 (0.0-0.4) 07/16/16 05:01 Baso # 0.0 K/mm3 (0.0-0.1) 07/16/16 05:01 Seg Neutrophils % 83.2 % (40.0-70.0) H 07/16/16 05:01 Seg Neutrophils # 9.8 K/mm3 (1.8-7.7) H 07/16/16 05:01 PT 16.1 Sec. (12.2-14.9) H 07/15/16 17:56 INR 1.30 (0.87-1.13) H 07/15/16 17:56 APTT 29.9 Sec. (24.2-36.6) 07/15/16 17:56 D-Dimer 5169.78 ng/mlDDU (0-234) H 07/15/16 17:56 Sodium 145 mmol/L (137-145) D 07/17/16 06:34 Potassium 3.4 mmol/L (3.6-5.0) L D 07/17/16 06:34 Chloride 100.3 mmol/L (98-107) 07/17/16 06:34 Carbon Dioxide 22 mmol/L (22-30) 07/17/16 06:34 Anion Gap 26 mmol/L 07/17/16 06:34 BUN 16 mg/dL (9-20) 07/17/16 06:34 Creatinine 0.8 mg/dL (0.8-1.5) 07/17/16 06:34 Estimated GFR > 60 ml/min 07/17/16 06:34 BUN/Creatinine Ratio 20.00 % 07/17/16 06:34 Glucose 88 mg/dL (75-100) 07/17/16 06:34 Calcium 9.9 mg/dL (8.4-10.2) 07/17/16 06:34 Total Bilirubin 1.80 mg/dL (0.1-1.2) H 07/15/16 17:56 AST 38 units/L (5-40) 07/15/16 17:56 ALT 16 units/L (7-56) 07/15/16 17:56 Alkaline Phosphatase 83 units/L (35-129) 07/15/16 17:56 Ammonia 44.0 umol/L (25-60) 07/16/16 13:35 Total Creatine Kinase 408 units/L (55-170) H 07/15/16 17:56 NT-Pro-B Natriuret Pep 08327 pg/mL (0-900) H 07/15/16 17:56 Total Protein 7.3 g/dL (6.3-8.2) 07/15/16 17:56 Albumin 4.4 g/dL (3.9-5) 07/15/16 17:56 Albumin/Globulin Ratio 1.5 % 07/15/16 17:56 Triglycerides 89 mg/dL (2-149) 07/17/16 06:34 Cholesterol 179 mg/dL (50-199) 07/17/16 06:34 LDL Cholesterol Direct 116 mg/dL (50-130) 07/17/16 06:34 HDL Cholesterol 46 mg/dL (40-59) 07/17/16 06:34 Cholesterol/HDL Ratio 3.89 % 07/17/16 06:34 Vitamin B12 445.8 pg/mL (211-911) 07/16/16 13:35 TSH 0.470 mlU/mL (0.270-4.200) 07/16/16 13:35 - Imaging and Cardiology Chest x-ray: image reviewed MRI - head: image reviewed
[2016-07-17] MEDS: KCL 10MEQ/100ML 10 MEQ/100 ML BAG IV SCH ×2 (16:42→18:35)
[2016-07-17] MEDS: MINIPRESS PO SCH (22:22)
[2016-07-17] MEDS: ZOCOR PO SCH (22:22)
[2016-07-17] MEDS: ZITHROMAX 500 MG in NACL 0.9% 250ML 250 ML IV SCH (22:22)
[2016-07-18] MEDS: ROCEPHIN/NS 1 GM/50 ML 1 GM/50 ML BAG IV SCH (00:38)
[2016-07-18] MEDS: LASIX IV SCH (05:28)
[2016-07-18] MEDS: DUONEB 0.5 MG-3 MG/3 ML SOLN IH SCH ×2 (07:20→13:12)
[2016-07-18 09:22] VITALS: BP 150/82
[2016-07-18] MEDS: EFFEXOR XR PO SCH (10:02)
[2016-07-18] MEDS: LOVENOX SUB-Q SCH (10:48)
[2016-07-18] MEDS ORDERED: MORPHINE IV PRN (11:00)
--- NOTE | 2016-07-18 11:25 | Progress Note ---
Assessment and Plan 76 YO M Hx HTN, CAd s/p CABG, AFib on Coumadin INR 1.3 on admit and Dementia but @ baseline communicative, able to perform ADLs and ambulate @ home w/o assistance p/w AMS and progressive global weakness over the past 4 days causing falls. CTH nonacute L BG and cerebellar chronic ischemia and global atrophy. On initial exam pt w/ depressed level of arousal, poor concentration, paucity of speech, not cooperative w/ midline/peripheral commands but grossly intact motor- sensory exam aside from asterixis/myoclonus localizing pain but otherwise intact symmetric neurologic exam, consistent with likely toxic metabolic infectious derangement. As alertness improved pt noted to have R facial droop, slurred speech and R visual field cut. MRI Brain confirms L BG and L occipital acute ischemic stroke. MRA Head w/ L ICA and L MCA occlusion. Stroke mech likely cardioembolic from AFib. .TSH/B12/NH4 neg. LDL 116. Recommendations: 1. No indication for pharmacologic thrombolysis with IV tPA or mechanical thrombectomy due to last known normal > 6 hrs from presentation. Current NIHSS 9 . 2. Telemetry bed w/ Q4 hour neuro checks 3. 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 4 . Can lower MAPs by 10-15% daily to reach goal SBP 120-160 5. Secondary stroke prevention: Per Palliative Care. Cont therapeutic AC goal INR 2-3 as needed & upgrade to full dose statin therapy (Crestor 20mg or 40mg OR Lipitor 40mg or 80mg Daily OR Zocor 40mg QDay) for goal LDL < 70. 6 F/E/N: isotonic IVF prn, prn replete, bedside speech/swallow eval prior to PO intake. 7. DVT Prophylaxis 8. Stroke education, PT/OT/Speech Therapy consults, CM evaluation 9. Cont Infectious work up/medical management for UTI, PNA, cellulitis, bacteremia, etc. 10. Avoid hyponatremia, hypo/hyper-calcemia, hypo/hyperglycemia, acidosis, hypoxia/hypoxemia, hypercarbia/hypercapnia 11. Avoid institution of any psychoactive medications (e.g. antihistamines, anticholinergics, BZD, hypnotics, opiates) as able unless low doses of low potency antipsychotic needed for behavioral issues complicating medical care 12. Thiamine/Folate/CIWA protocol accordingly for any hx obtained to suggest EtOH withdrawal 13. We can revisit as needed. Subjective Date of service: 07/18/16 Principal diagnosis: AMS Interval history: MRI completed. Objective - Vital Sign Vital Signs - 12hr 07/18/16 07/18/16 07/18/16 00:00 00:49 07:18 Temperature 99.0 F Pulse Rate [ Bilateral Throughout] Pulse Rate [ 100 H 125 H Right Radial] Respiratory 22 22 Rate Respiratory Rate [Bilateral Throughout] Blood Pressure 152/86 [Right Arm] O2 Sat by Pulse 97 97 99 Oximetry 07/18/16 07/18/16 07/18/16 07:20 07:30 08:00 Temperature 98.5 F Pulse Rate [ 115 H 119 H Bilateral Throughout] Pulse Rate [ 112 H Right Radial] Respiratory 18 Rate Respiratory 18 18 Rate [Bilateral Throughout] Blood Pressure 150/82 [Right Arm] O2 Sat by Pulse 97 Oximetry - General Apperance Constitutional: uncomfortable, acutely ill, chronically ill - EENT EENT: ATNC, PERRL, mucous membranes moist, hearing intact, vision intact - Respiratory Respiratory: normal breath sounds, no respiratory distress - Cardiovascular Cardiovascular: other (Afib) Extremities: no peripheral edema bilat, no clubbing, cyanosis, no inflammation, no ischemia or petechiae - Gastrointestinal Gastrointestinal: normoactive bowel sounds, soft, non-distended - Integumentary Integumentary: normal - Neurologic Cranial nerve examination: PERRL, EOMI, V1/V2/V3 grossly intact, tongue midline , intact, Intact Vestibulo-ocular r, intact corneal reflex, facial droop (mild on R), normal palatal elevation, other (R field cut) Speech examination: sensory aphasia, other (slurred, ) Motor examination - right side: 4/5: biceps, triceps, wrist flexion, wrist extension, automotive parts counter associate, hip flexors, knee extensors, dorsiflexion, toe extension (EHL) , plantarflexion Motor examination - left side: 5/5: biceps, triceps, wrist flexion, wrist extension, automotive parts counter associate, hip flexors, knee extensors, dorsiflexion, toe extension (EHL) , plantarflexion Detailed sensory examination: intact, light touch Reflex and gait examination: Babinski's sign (R > L) Reflexes: 2+: ankle, bicep, knee, tricep - Musculoskeletal Musculoskeletal: no fluid collection, no pain, normal range of motion - Psychiatric Psychiatric: agitated - Laboratory Findings CBC and BMP: 07/16/16 05:01 07/17/16 06:34 Abnormal Lab Findings: Abnormal Labs 07/16/16 07/16/16 07/17/16 05:01 05:01 06:34 WBC 11.8 H Lymph % (Auto) 6.9 L [place] % (Auto) 9.8 H Lymph # 0.8 L [place] # 1.2 H Seg Neutrophils % 83.2 H Seg Neutrophils # 9.8 H Potassium 2.8 L* 3.4 L D Carbon Dioxide 19 L
--- NOTE | 2016-07-18 11:38 | Discharge Summary ---
Providers - Providers Date of Admission: 07/15/16 20:11 Date of discharge: 07/18/16 Attending physician: PASTOR GONZALEZ 07/16/16 Consult to Physician [CONS] Routine Consulting Provider: KATIA VAUGHN Reason For Exam: ataxia, dysarhria Place consult to:: dr. vaughn Notified:: cell Phone number called:: [phone] Was contact made?: Yes If yes, spoke with:: dr. vaughn Time called:: 11:51 07/16/16 10:45 Occupational Therapy Evaluate and Treat [CONS] Routine Comment: Reason For Exam: Neuro deficits Physical Therapy Evaluation and Treat [CONS] Routine Comment: Reason For Exam: Neuro deficits 07/16/16 10:51 Speech Therapy Evaluation and Treat [CONS] Routine Reason For Exam: dysphagia, dysarthria Primary care physician: IAN PAZ Hospitalization Condition: Poor Pertinent studies: MRI acute left basal CVA and acute (left occipital CVA) Hospital course: Patient presented with acute altered mental status and responsiveness stroke workup revealed acute CVA. We gave family option to have PEG tube placement. stated patient had poor quality of life and dementia and chronic pain prior to this. They do not want a feeding to would like comfort feeds only comfort measures only. They saw the hospice benefit patient will be discharged to skilled nurse facility under hospice. Disposition: DC TO HOSPICE (HOME) - Discharge Diagnoses (1) Acute ischemic stroke Status: Acute Comment: Acute ischemic stroke atrial fibrillation. We'll resume Coumadin now. Patient failed swallowing eval may not be able to take Coumadin. Therefore patient on hospice. (2) Accelerated hypertension Status: Acute Comment: Or pressure much better controlled. We'll continue beta brittany patient able to swallow. (3) Acute systolic CHF (congestive heart failure) Status: Resolved (4) Aspiration pneumonia Status: Acute Qualifiers: Aspiration pneumonia type: A Laterality: L Lung location: L Comment: Aspiration pneumonia secondary to CVA has been clear what anabiotic coverage. Discharged with home hospice. (5) CAD (coronary artery disease) Status: Acute Qualifiers: Coronary Disease-Associated Artery/Lesion type: C [place] vs. transplanted heart: N Associated angina: without angina Comment: Pradeep chest pain-free. (6) Chronic pain Status: Acute Qualifiers: Chronic pain type: C Comment: Long-term chronic pain with opiate we'll use for years. states patient is been in pain for long time is suffering will improve with hospice services. Palliative care. Core Measure Documentation - Palliative Care Palliative Care/ Comfort Measures: Hospice Care - Core Measures Any of the following diagnoses?: stroke (hospice cannot swallow) - Stroke Discharge Requirements Statin for LDL = or >70 mg/dl on DC: Yes Anticoag for atrial fib/atrial flutter: Yes Antithrombotic for ischemic stroke: Yes Stroke additional comments: We'll attempt medications his swallowing mechanism returns. The patient family does not want PEG tube does not want any alternative means of feeding. Exam - Constitutional Vitals: Temp Pulse Resp BP Pulse Ox 98.5 F 112 H 18 150/82 97 07/18/16 08:00 07/18/16 08:00 07/18/16 08:00 07/18/16 08:00 07/18/16 08:00 General appearance: Present: severe distress - EENT Eyes: Present: PERRL, EOM intact ENT: hearing intact, other - Neck Neck: Present: supple (dysphagia), normal ROM - Respiratory Respiratory effort: normal Respiratory: bilateral: diminished, rhonchi - Cardiovascular Rhythm: regular - Extremities Extremities: no ischemia, pulses intact - Abdominal General gastrointestinal: Present: hypoactive bowel sounds, other (scaphoid hyperactive bowel sounds) - Musculoskeletal Musculoskeletal: left sided weakness, generalized weakness - Psychiatric Psychiatric: depressed - Neurologic Neurologic: focal deficits Plan Weight Bearing Status: Non-Weight Bearing Diet: advance as tolerated, other (nothing by mouth advance as tolerated failed swallowing eval) Follow up with: IAN PAZ MD, PHD [Primary Care Provider] - 3-5 Days Prescriptions: Ipratropium/Albuterol Sulfate [Duoneb 0.5 mg-3 mg/3 ml Soln] 1 ampul IH TIDRT # 30 ampul.neb LORazepam [Ativan INJ] 1 mg IV Q8H PRN #10 vial PRN Reason: Agitation Simvastatin [Zocor TAB] 20 mg PO QHS #30 tablet
== END 2016-07-18 16:15 | DRG 64 ==
LOC: ED 09:09 → 3A 20:11
PROVIDERS: ADMIT Internal Medicine; ATTEND Internal Medicine
DX: I63.9 Cerebral infarction, unspecified (principal); J69.0 Pneumonitis due to inhalation of food and vomit; G93.40 Encephalopathy, unspecified; I50.21 Acute systolic (congestive) heart failure; I25.10 Atherosclerotic heart disease of native coronary artery without angina pectoris; E87.6 Hypokalemia; I11.0 Hypertensive heart disease with heart failure; F03.90 Unspecified dementia, unspecified severity, without behavioral disturbance, psychotic disturbance, mood disturbance, and anxiety; G89.29 Other chronic pain; I48.91 Unspecified atrial fibrillation; Z95.1 Presence of aortocoronary bypass graft; Z82.49 Family history of ischemic heart disease and other diseases of the circulatory system; Z79.899 Other long term (current) drug therapy
CPT/HCPCS: 36415; 70450; 70544; 70551; 71010; 80048; 80053; 80061; 82140; 82550; 82607; 83880; 84443; 85025; 85379; 85610; 85730; 87040; 90686; 90732; 94640; 94760; 96361; 96374; 96375; G8978-GP; G8979-GP; G8987-GO; G8988-GO; G8989-GO; G8996-GN; G8997-GN; G8998-GN; J0360; J0456; J0696; J1650; J1940; J2060; J2270; J3360; J3480; J7030; J7050

== ENCOUNTER 2016-08-19 15:56 | Emergency (ER) | payer MEDICARE ==
[2016-08-19] MEDS ORDERED: NACL 0.9% 500 ML 500 ML IV ONE (16:39)
--- NOTE | 2016-08-19 16:44 | Emergency Department Report ---
ED Altered Mental Status HPI - General Chief Complaint: Altered Mental Status Stated Complaint: AMS Time Seen by Provider: 08/19/16 16:28 Source: family, EMS Mode of arrival: Stretcher Limitations: Altered Mental Status, Physical Limitation - History of Present Illness Initial Comments: PATIENT BROUGHT BY EMS FROM CARE HOME AFTER HE SUSTAINED A FALL FROM HIS BED THIS MORNING. NO LOC. BUT FAMILY SAID HE IS A LITTLE BIT ALTERED. MD Complaint: altered mental status -: Sudden Severity: mild Context: trauma - Related Data Previous Rx's Medication Instructions Recorded Last Taken Type Ipratropium/Albuterol Sulfate 1 ampul IH TIDRT #30 ampul.neb 07/18/16 Unknown Rx [Duoneb 0.5 mg-3 mg/3 ml Soln] LORazepam [Ativan INJ] 1 mg IV Q8H PRN #10 vial 07/18/16 Unknown Rx Simvastatin [Zocor TAB] 20 mg PO QHS #30 tablet 07/18/16 Unknown Rx Amoxicillin [Amoxicillin TAB] 875 mg PO BID #14 tablet 08/19/16 Unknown Rx Allergies Allergy/AdvReac Type Severity Reaction Status Date / Time No Known Allergies Allergy Verified 07/15/16 09:33 ED Review of Systems ROS: Stated complaint: AMS Other details as noted in HPI Comment: All other systems reviewed and negative ED Past Medical Hx - Past Medical History Hx Hypertension: Yes Hx CVA: Yes Hx Heart Attack/AMI: Yes Hx Congestive Heart Failure: Yes Hx Dementia: Yes - Surgical History Hx Coronary Stent: Yes Hx Open Heart Surgery: Yes Additional Surgical History: multiple ortho. 7 back surgeries. hernia repair - Social History Smoking Status: Unknown if ever smoked - Medications Home Medications: Home Medications Medication Instructions Recorded Confirmed Last Taken Type Ipratropium/Albuterol Sulfate 1 ampul IH TIDRT #30 ampul.neb 07/18/16 Unknown Rx [Duoneb 0.5 mg-3 mg/3 ml Soln] LORazepam [Ativan INJ] 1 mg IV Q8H PRN #10 vial 07/18/16 Unknown Rx Simvastatin [Zocor TAB] 20 mg PO QHS #30 tablet 07/18/16 Unknown Rx Amoxicillin [Amoxicillin TAB] 875 mg PO BID #14 tablet 08/19/16 Unknown Rx ED Physical Exam - General Limitations: Altered Mental Status, Physical Limitation General appearance: alert, in no apparent distress - Head Head exam: Present: other (PATIENT HAS AN ECHYMOSIS ON THE LEFT EYEBROW) - ENT ENT exam: Present: normal exam - Neck Neck exam: Present: normal inspection, full ROM. Absent: tenderness, meningismus - Respiratory Respiratory exam: Present: normal lung sounds bilaterally - Cardiovascular Cardiovascular Exam: Present: irregular rhythm - GI/Abdominal GI/Abdominal exam: Present: soft. Absent: distended, tenderness, guarding, rebound, rigid - External exam: Present: normal external exam - Extremities Exam Extremities exam: Present: normal inspection - Back Exam Back exam: Present: normal inspection - Neurological Exam Neurological exam: Present: alert, altered. Absent: CN II-XII intact ED Course Vital Signs 08/19/16 08/19/16 08/19/16 16:06 16:10 16:20 Temperature Pulse Rate 92 H 75 83 Respiratory 20 14 16 Rate Blood Pressure 137/69 130/66 O2 Sat by Pulse 97 99 78 L Oximetry 08/19/16 08/19/16 08/19/16 16:21 16:32 16:45 Temperature 97.1 F L Pulse Rate 77 Respiratory 20 Rate Blood Pressure 137/69 108/84 152/85 O2 Sat by Pulse 100 Oximetry 08/19/16 08/19/16 08/19/16 17:34 17:40 17:50 Temperature Pulse Rate 79 92 H Respiratory 16 14 Rate Blood Pressure 152/85 148/71 165/86 O2 Sat by Pulse 95 100 94 Oximetry 08/19/16 08/19/16 08/19/16 18:00 18:10 18:25 Temperature Pulse Rate 83 76 76 Respiratory 16 11 L 12 Rate Blood Pressure 165/86 159/99 152/85 O2 Sat by Pulse 86 98 Oximetry 08/19/16 08/19/16 08/19/16 18:30 18:38 18:40 Temperature Pulse Rate 82 74 Respiratory 14 18 12 Rate Blood Pressure 152/85 123/79 O2 Sat by Pulse 100 100 100 Oximetry 08/19/16 08/19/16 08/19/16 18:50 19:00 19:10 Temperature Pulse Rate 134 H 74 82 Respiratory 12 11 L 13 Rate Blood Pressure 162/96 162/96 176/93 O2 Sat by Pulse 100 100 100 Oximetry 08/19/16 08/19/16 19:32 19:40 Temperature Pulse Rate 81 89 Respiratory 12 16 Rate Blood Pressure 176/93 176/93 O2 Sat by Pulse 99 99 Oximetry - Reevaluation(s) Reevaluation #1: 08/19/16 21:01 PATIENT IS BACK TO HIS BASELINE ACCORDING TO HIS FAMILY. WILL TREAT WITH ANTIBIOTICS AND RECOMMENDED A REFFERAL TO FASCIOMAXILLARY SURGEON. PATIENT IN NO ACUTE DISTRESS. - Lab Data Result diagrams: 08/19/16 16:47 08/19/16 16:47 Lab Results 08/19/16 08/19/16 08/19/16 Range/Units 16:47 16:47 16:47 WBC 6.5 (4.5-11.0) K/mm3 RBC 3.78 (3.65-5.03) M/mm3 Hgb 11.6 L (11.8-15.2) gm/dl Hct 34.9 L (35.5-45.6) % MCV 93 (84-94) fl MCH 31 (28-32) pg MCHC 33 (32-34) % RDW 15.1 (13.2-15.2) % Plt Count 180 (140-440) K/mm3 Lymph % (Auto) 16.5 (13.4-35.0) % [place] % (Auto) 9.5 H (0.0-7.3) % Eos % (Auto) 1.2 (0.0-4.3) % Baso % (Auto) 0.6 (0.0-1.8) % Lymph # 1.1 L (1.2-5.4) K/mm3 [place] # 0.6 (0.0-0.8) K/mm3 Eos # 0.1 (0.0-0.4) K/mm3 Baso # 0.0 (0.0-0.1) K/mm3 Seg Neutrophils % 72.2 H (40.0-70.0) % Seg Neutrophils # 4.7 (1.8-7.7) K/mm3 PT (12.2-14.9) Sec. INR (0.87-1.13) APTT (24.2-36.6) Sec. Sodium 142 (137-145) mmol/L Potassium 4.2 (3.6-5.0) mmol/L Chloride 102.1 (98-107) mmol/L Carbon Dioxide 29 (22-30) mmol/L Anion Gap 15 mmol/L BUN 10 (9-20) mg/dL Creatinine 0.9 (0.8-1.5) mg/dL Estimated GFR > 60 ml/min BUN/Creatinine Ratio 11.11 % Glucose 79 (75-100) mg/dL Lactic Acid 1.20 (0.7-2.0) mmol/L Calcium 9.2 (8.4-10.2) mg/dL Total Bilirubin 0.40 (0.1-1.2) mg/dL AST 29 (5-40) units/L ALT 24 (7-56) units/L Alkaline Phosphatase 181 H (35-129) units/L Ammonia (25-60) umol/L Troponin T (0.00-0.029) ng/mL Total Protein 6.2 L (6.3-8.2) g/dL Albumin 3.8 L (3.9-5) g/dL Albumin/Globulin Ratio 1.6 % Urine Color (Yellow) Urine Turbidity (Clear) Urine pH (5.0-7.0) Ur Specific [place] (1.003-1.030) Urine Protein (Negative) mg/dL Urine Glucose (UA) (Negative) mg/dL Urine Ketones (Negative) mg/dL Urine Blood (Negative) Urine Nitrite (Negative) Urine Bilirubin (Negative) Urine Urobilinogen (<2.0) mg/dL Ur Leukocyte Esterase (Negative) Urine WBC (Auto) (0.0-6.0) /HPF Urine RBC (Auto) (0.0-6.0) /HPF Urine Mucus /HPF 08/19/16 08/19/16 08/19/16 Range/Units 16:47 16:47 16:47 WBC (4.5-11.0) K/mm3 RBC (3.65-5.03) M/mm3 Hgb (11.8-15.2) gm/dl Hct (35.5-45.6) % MCV (84-94) fl MCH (28-32) pg MCHC (32-34) % RDW (13.2-15.2) % Plt Count (140-440) K/mm3 Lymph % (Auto) (13.4-35.0) % [place] % (Auto) (0.0-7.3) % Eos % (Auto) (0.0-4.3) % Baso % (Auto) (0.0-1.8) % Lymph # (1.2-5.4) K/mm3 [place] # (0.0-0.8) K/mm3 Eos # (0.0-0.4) K/mm3 Baso # (0.0-0.1) K/mm3 Seg Neutrophils % (40.0-70.0) % Seg Neutrophils # (1.8-7.7) K/mm3 PT 13.7 (12.2-14.9) Sec. INR 1.06 (0.87-1.13) APTT 27.0 (24.2-36.6) Sec. Sodium (137-145) mmol/L Potassium (3.6-5.0) mmol/L Chloride (98-107) mmol/L Carbon Dioxide (22-30) mmol/L Anion Gap mmol/L BUN (9-20) mg/dL Creatinine (0.8-1.5) mg/dL Estimated GFR ml/min BUN/Creatinine Ratio % Glucose (75-100) mg/dL Lactic Acid (0.7-2.0) mmol/L Calcium (8.4-10.2) mg/dL Total Bilirubin (0.1-1.2) mg/dL AST (5-40) units/L ALT (7-56) units/L Alkaline Phosphatase (35-129) units/L Ammonia 21.0 L (25-60) umol/L Troponin T < 0.010 (0.00-0.029) ng/mL Total Protein (6.3-8.2) g/dL Albumin (3.9-5) g/dL Albumin/Globulin Ratio % Urine Color (Yellow) Urine Turbidity (Clear) Urine pH (5.0-7.0) Ur Specific [place] (1.003-1.030) Urine Protein (Negative) mg/dL Urine Glucose (UA) (Negative) mg/dL Urine Ketones (Negative) mg/dL Urine Blood (Negative) Urine Nitrite (Negative) Urine Bilirubin (Negative) Urine Urobilinogen (<2.0) mg/dL Ur Leukocyte Esterase (Negative) Urine WBC (Auto) (0.0-6.0) /HPF Urine RBC (Auto) (0.0-6.0) /HPF Urine Mucus /HPF 08/19/16 Range/Units 18:00 WBC (4.5-11.0) K/mm3 RBC (3.65-5.03) M/mm3 Hgb (11.8-15.2) gm/dl Hct (35.5-45.6) % MCV (84-94) fl MCH (28-32) pg MCHC (32-34) % RDW (13.2-15.2) % Plt Count (140-440) K/mm3 Lymph % (Auto) (13.4-35.0) % [place] % (Auto) (0.0-7.3) % Eos % (Auto) (0.0-4.3) % Baso % (Auto) (0.0-1.8) % Lymph # (1.2-5.4) K/mm3 [place] # (0.0-0.8) K/mm3 Eos # (0.0-0.4) K/mm3 Baso # (0.0-0.1) K/mm3 Seg Neutrophils % (40.0-70.0) % Seg Neutrophils # (1.8-7.7) K/mm3 PT (12.2-14.9) Sec. INR (0.87-1.13) APTT (24.2-36.6) Sec. Sodium (137-145) mmol/L Potassium (3.6-5.0) mmol/L Chloride (98-107) mmol/L Carbon Dioxide (22-30) mmol/L Anion Gap mmol/L BUN (9-20) mg/dL Creatinine (0.8-1.5) mg/dL Estimated GFR ml/min BUN/Creatinine Ratio % Glucose (75-100) mg/dL Lactic Acid (0.7-2.0) mmol/L Calcium (8.4-10.2) mg/dL Total Bilirubin (0.1-1.2) mg/dL AST (5-40) units/L ALT (7-56) units/L Alkaline Phosphatase (35-129) units/L Ammonia (25-60) umol/L Troponin T (0.00-0.029) ng/mL Total Protein (6.3-8.2) g/dL Albumin (3.9-5) g/dL Albumin/Globulin Ratio % Urine Color Straw (Yellow) Urine Turbidity Clear (Clear) Urine pH 7.0 (5.0-7.0) Ur Specific [place] 1.004 (1.003-1.030) Urine Protein <15 mg/dl (Negative) mg/dL Urine Glucose (UA) Neg (Negative) mg/dL Urine Ketones Neg (Negative) mg/dL Urine Blood Mod (Negative) Urine Nitrite Neg (Negative) Urine Bilirubin Neg (Negative) Urine Urobilinogen < 2.0 (<2.0) mg/dL Ur Leukocyte Esterase Neg (Negative) Urine WBC (Auto) 7.0 H (0.0-6.0) /HPF Urine RBC (Auto) 7.0 (0.0-6.0) /HPF Urine Mucus Few /HPF Critical care attestation.: If time is entered above; I have spent that time in minutes in the direct care of this critically ill patient, excluding procedure time. ED Disposition Clinical Impression: Altered mental status, Fall, Orbital fracture Disposition: DC-01 TO HOME OR SELFCARE Is pt being admited?: No Does the pt Need Aspirin: No Condition: Stable Instructions: Fall Prevention (ED), Facial Fracture (ED) Prescriptions: Amoxicillin [Amoxicillin TAB] 875 mg PO BID #14 tablet Referrals: PRIMARY CARE, [Primary Care Provider] - 3-5 Days
[2016-08-19 17:13] LABS: Basophils % (Auto) 0.6 % (0.0-1.8); Eosinophils % (Auto) 1.2 % (0.0-4.3); Hematocrit 34.9 % (35.5-45.6); Hemoglobin 11.6 gm/dl (11.8-15.2); Mean Corpuscular HGB Conc 33 % (32-34); Mean Corpuscular Hemoglobin 31 pg (28-32); Mean Corpuscular Volume 93 fl (84-94); Platelet Count 180 K/mm3 (140-440); Red Blood Count 3.78 M/mm3 (3.65-5.03); Red Cell Distribution Width 15.1 % (13.2-15.2); White Blood Count 6.5 K/mm3 (4.5-11.0)
[2016-08-19 17:38] LABS: INR 1.06 (0.87-1.13)
[2016-08-19 17:40] LABS: Alanine Aminotransferase 24 units/L (7-56); Albumin 3.8 g/dL (3.9-5); Albumin/Globulin Ratio 1.6 %; Alkaline Phosphatase 181 units/L (35-129); Anion Gap 15 mmol/L; BUN/Creatinine Ratio 11.11; Blood Urea Nitrogen 10 mg/dL (9-20); Calcium 9.2 mg/dL (8.4-10.2); Carbon Dioxide 29 mmol/L (22-30); Chloride 102.1 mmol/L (98-107); Glucose 79 mg/dL (75-100); Potassium 4.2 mmol/L (3.6-5.0); Sodium 142 mmol/L (137-145); Total Protein 6.2 g/dL (6.3-8.2)
--- NOTE | 2016-08-19 18:02 | Cat Scan Report ---
FINAL REPORT PROCEDURE: CT HEAD/BRAIN WO CON TECHNIQUE: Computerized tomography of the head was performed without contrast material. HISTORY: Altered Mental Status COMPARISON: No prior studies are available for comparison. 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 There is a fracture of the lateral wall of the left maxillary sinus. Probable fractures present of the left orbital floor. Further evaluation with CT of the facial bones is recommended. Mild hemorrhagic fluid is seen in the left maxillary sinus. Much of the facial bones are excluded on this study. Mastoid air cells appear clear. Prominent diffuse volume loss is seen in the brain with compensatory enlargement of the ventricular system. Old lacunar infarct is seen in the left cerebellar hemisphere. Old lacunar infarct is seen in the left internal capsule. More vague hypodensities in the frontal white matter are probably due to subacute to chronic small vessel ischemic changes. No acute intracranial hemorrhage or mass effect is seen. IMPRESSION: Nondisplaced fracture of the lateral wall of the left maxillary sinus is seen with possible fracture of the floor of the left orbit. Further evaluation with CT of the facial bones is recommended. Probable subacute to chronic small vessel ischemic changes are seen in the brain. Correlation with MRI may be useful, as recent lacunar infarct in the frontal white matter could be obscured due to the chronic changes. No acute intracranial hemorrhage is seen.
[2016-08-19 18:20] LABS: Bilirubin,Urine NEG (Negative); Blood,Urine MOD (Negative); Ketones,Urine NEG (Negative); Leukocyte Esterase,Urine NEG (Negative); Mucus,Urine FEW /HPF; Nitrite,Urine NEG (Negative); Protein,Urine <15 mg/dL mg/dL (Negative); Urobilinogen,Urine < 2.0 mg/dL (<2.0)
--- NOTE | 2016-08-19 18:47 | Admit Criteria Form ---
Admission Criteria Documentation: MENTAL STATUS CHANGE Clinical Indications for Inpatient Care (Place 'X' for any and all applicable criteria): Ongoing inpatient care may be needed for 1 or more of the following(1)(2)(3)(5)( 6): [ X]I. Suspected serious etiology (eg, medical disorder, SENIOR STAFF PSYCHOLOGIST event) of altered mental status [ ]II. Danger to self or others not manageable at lower level of care [ ]III. Grave disability (eg, inability to perform self care necessary at lower level of care) [ ]IV. Agitation or inappropriate behavior interfering with care for primary condition (eg, attempting to discontinue lines or drains prematurely, unable to cooperate with respiratory care) [ ]V. Delirium [A] [D][E] as described by 1 or more of the following(26): [ ]a) Delirium due to alcohol or sedative [F] withdrawal [ ]b) Delirium of uncertain etiology that has not responded to appropriate empiric treatment [ ]c) Delirium that prevents performance of a life-sustaining function (eg, feeding or hydrating oneself) [ ]. General contraindications and/or Inappropriate clinical situations for Observational Care in patients with Mental Status Change, when ANY ONE of the following is required: [ ]a) Prediction of prolongation of LOS based on ANY ONE of the following may be considered as a contraindication for observational care 2, 3, 4, 5, 6, 7, 8, 9, 10, 11 [ ]i) Age > 65 yrs. [ ]ii) Patient arriving by ambulance [ ]iii) Patient with high acuity [ ]iv) Patient requiring vital sign monitoring [ ]v) Patient on IV medication [ ]b) Systolic blood pressures greater than or equal to 180mmHg 3, 12 [ ]c) Patient with altered mental status including delirium and other alteration of consciousness, (3) [ ]d) Patient whose discharge disposition will be to a residential home or rehabilitation home should not be managed in Emergency Department Observation Unit. CMS rule requires 3 days hospital stay before such placement.3,13 [ ]e) Patient with failure to thrive due to broad array of etiologies 3,16,17 [ ]f) Inability to ambulate 3,14 Extended stay beyond goal length of stay for the primary condition may be needed until ALL of the following are present(3)(5): [ ]a) Underlying medical etiology of mental status change is absent, or has been established and adequately treated [ ]b) Danger to self or others is absent or manageable at lower level of care. [ ]c) Behavior crisis management, including physical or chemical restraints, is not required or available at lower level of car [ ]d) Substance or alcohol withdrawal is absent or manageable at lower level of care. [ ]e) Behavioral symptoms (eg, agitation, somnolence, inappropriate behavior) are absent, or are manageable at lower level of care. The original [facility] [employer] content created by [facility] [employer] has been revised. The portions of the content which have been revised are identified through the use of italic text or in bold, and [email or web address] has neither reviewed nor approved the modified material. All other unmodified content is copyright [facility]. Please see references footnoted in the original [facility] edition 2016 Admission Criteria Met: Pending
--- NOTE | 2016-08-19 20:18 | Cat Scan Report ---
FINAL REPORT PROCEDURE: CT FACIAL BONES WO CON TECHNIQUE: Computerized tomography of the facial bones and soft tissues with axial and coronal sections performed from the cranial aspect of the frontal sinuses to the caudal portion of the mandible without contrast material. HISTORY: FALL, facial TRAUMA, left maxillary fracture seen on CT brain COMPARISON: CT brain from same day FINDINGS: Hemorrhagic fluid is seen in the left maxillary sinus. Left periorbital swelling is seen without evidence of postseptal swelling. Globes appear symmetric. No nasal bone fracture is seen. There is a nondisplaced fracture of the lateral wall of the left maxillary sinus. There is likely nondisplaced fracture of the floor of the left orbit posteriorly, also. There may be nondisplaced fracture of the inferior aspect of the anterior wall of the left maxillary sinus. No mandible fracture is seen. IMPRESSION: Nondisplaced fracture of the lateral wall of the left maxilla is seen. This likely extends to the posterior aspect of the floor of the left orbit. Possible nondisplaced fracture is seen in the inferior aspect of the anterior wall of the left maxillary sinus. No displaced fractures are seen.
[2016-08-19 21:39] VITALS: BP 185/107
--- NOTE | 2016-08-20 08:20 | XRay Report ---
AP CHEST :08/19/16 15:56:00 CLINICAL: Altered mental status. COMPARISON:07/15/16 FINDINGS: Stable cardiomegaly. Mild redistribution of pulmonary blood flow to the upper lobes. The lungs are normally expanded and clear. Median sternotomy wires. IMPRESSION: Cardiomegaly and pulmonary venous hypertension. No pulmonary edema. No pneumonia.
== END 2016-08-19 22:08 | disposition home or self-care (01) ==
LOC: ED 15:56
DX: S02.82XA Fracture of other specified skull and facial bones, left side, initial encounter for closed fracture (principal); R41.82 Altered mental status, unspecified; I11.0 Hypertensive heart disease with heart failure; I50.9 Heart failure, unspecified; I25.2 Old myocardial infarction; F03.90 Unspecified dementia, unspecified severity, without behavioral disturbance, psychotic disturbance, mood disturbance, and anxiety; Z95.9 Presence of cardiac and vascular implant and graft, unspecified; Z86.73 Personal history of transient ischemic attack (TIA), and cerebral infarction without residual deficits; W06.XXXA Fall from bed, initial encounter; Y93.89 Activity, other specified; Y92.89 Other specified places as the place of occurrence of the external cause; Y99.8 Other external cause status
CPT/HCPCS: 36415; 70450; 70486; 71010; 80053; 81001; 82140; 84484; 85025; 85610; 85730; 93005; 93010; 99285; J7040